=== PATIENT | male | born 1970 | race Caucasian/White ===

== ENCOUNTER 2018-08-17 11:09 | Outpatient (CLI) | payer OTHER ==
--- NOTE | 2018-08-17 12:05 | RAD ---
XR Cervical Spine 4 View Min History: [Cervical radicular pain 54.7] Comparison: None. Findings: The open-mouth odontoid view is normal. No acute fracture or malalignment. 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 Mild narrowing of the C2/C3 disc space as well as of the C4/C5, C5/C6 and C6/C7 disc spaces. Mild uncinate process hypertrophy from C4-C7. No significant listhesis in the neutral position. Retrolisthesis of C4 over C5 approximately 2 mm in extension. Impression: 2 mm C4 over C5 in extension.
== END 2018-08-17 11:10 | disposition home or self-care (01) ==
LOC: BICRAD 11:09
PROVIDERS: ATTEND Specialist
DX: M54.12 Radiculopathy, cervical region (principal)
CPT/HCPCS: 72050

== ENCOUNTER 2018-09-01 08:52 | Outpatient (CLI) | payer OTHER ==
--- NOTE | 2018-09-01 10:28 | MRI ---
MRI CERVICAL SPINE WITHOUT IV CONTRAST: HISTORY: Cervical radiculopathy. Radicular pain. Retrolisthesis. COMPARISON: Cervical spine from 08/17/2018. FINDINGS: Some generalized disk desiccation changes and degenerative changes are noted. The visualized brain and soft tissue neck appear unremarkable. C2-C3: No evidence for stenosis. C3-C4: No evidence for stenosis. C4-C5: Very mild disk osteophytosis without evidence for associated stenosis. C5-C6: Mild disk osteophytosis with minimal indention of the ventral thecal sac. No evidence for as sociated stenosis. C6-C7: No evidence for associated stenosis. C7-T1: No evidence for associated stenosis. No evidence for spinal cord mass or spinal cord compression. IMPRESSION: Generalized disk desiccation changes with ligament and facet hypertrophic changes with mild indention of the ventral thecal sac at C5-C6. No evidence for significant canal, lateral recess, or foraminal stenosis. No spinal cord mass or spinal cord compression or other acute process. POS: [facility]
== END 2018-09-01 08:53 | disposition home or self-care (01) ==
LOC: BICMRI 08:52
PROVIDERS: ATTEND Specialist
DX: M47.22 Other spondylosis with radiculopathy, cervical region (principal); M43.12 Spondylolisthesis, cervical region; M50.122 Cervical disc disorder at C5-C6 level with radiculopathy
CPT/HCPCS: 72141

== ENCOUNTER 2020-07-20 11:25 | Outpatient (CLI) | payer BC | END 2020-07-20 11:26 | disposition home or self-care (01) | LOC: BICRAD 11:25 | PROVIDERS: ATTEND Specialist | DX: M79.642 Pain in left hand (principal) ==